=== PATIENT | male | born 1995 | race American Indian/Alaskan Native ===

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

== ENCOUNTER 2018-06-12 05:03 | Emergency (ER) | payer MEDICAID ==
[2018-06-12 05:12] VITALS: O2SAT 100
[2018-06-12] MEDS ORDERED: cefTRIAXone (Rocephin) 250 mg Inj IM STA (05:46)
--- NOTE | 2018-06-12 05:48 | C.PDOC ---
History Of Present Illness 22 y/o male c/o tingling in urethra and pain with urination 3 days after having sex with new female partner. pt sts condom broke. prior hx of chlamydia. no abdominal pain. denies penile and teste pain., Time Seen by Provider: 06/12/18 05:21 Chief Complaint (Nursing): Male Genitourinary History Per: Patient Onset/Duration Of Symptoms: Days (3) Current Symptoms Are (Timing): Still Present Quality Of Discomfort: "Pain" Associated Symptoms: Urinary Symptoms (dysuria). denies: Fever, Chills Past Medical History Reviewed: Historical Data, Nursing Documentation, Vital Signs Vital Signs: Last Vital Signs Temp 98.3 F 06/12/18 05:10 Pulse 68 06/12/18 05:10 Resp 20 06/12/18 05:10 BP 163/82 H 06/12/18 05:10 Pulse Ox 100 06/12/18 05:10 - Medical History PMH: No Chronic Diseases Surgical History: No Surg Hx Family History: States: Unknown Family Hx - Social History Hx Alcohol Use: Yes Hx Substance Use: Yes - Immunization History Hx Tetanus Toxoid Vaccination: Yes Hx Influenza Vaccination: Yes Hx Pneumococcal Vaccination: Yes Review Of Systems Constitutional: Negative for: Fever, Chills Genitourinary: Positive for: Dysuria, Penile Pain (tingling in urethra) Physical Exam - Physical Exam Appears: Non-toxic, No Acute Distress Skin: Normal Color, Warm, Dry Head: Atraumatic, Normacephalic Eye(s): bilateral: Normal Inspection, PERRL, EOMI Oral Mucosa: Moist Neck: Normal, Supple Chest: Symmetrical, No Tenderness Cardiovascular: Rhythm Regular Respiratory: Normal Breath Sounds, No Rales, No Rhonchi, No Wheezing Male Genital: Circumcised, Other (Applications Tester Nurse Samuel. Few ingorwn hairs to the mons pubis. No lesions. Swab dry with no discharge noted. ) Extremity: Normal ROM Neurological/Psych: Oriented x3, Normal Speech, Normal Cognition ED Course And Treatment O2 Sat by Pulse Oximetry: 100 (RA) Pulse Ox Interpretation: Normal Medical Decision Making Medical Decision Making: Plan: Chlamydia Rocephin 250mg PO Zithromax 1000mg Po Urinalysis 06/15 serology results reviewed, +gc and chlamydia. pt was treated for both during ED visit. Message left for pt to call ED to discuss results. Disposition Counseled Patient/Family Regarding: Studies Performed, Diagnosis, Need For Followup, Rx Given - Disposition Referrals: [facility] [Outside] [facility] [Outside] Disposition: HOME/ ROUTINE Disposition Time: 07:03 Condition: GOOD Additional Instructions: Safe sex only. Notify partner to be treated. Follow up in clinic; std clinic recommended. Take antibiotics as prescribed. Return for any worse symptoms, Prescriptions: Ciprofloxacin [Cipro] 500 mg PO BID #6 tab Instructions: Urinary Tract Infection, Adult (DC), Urethritis (DC) Forms: [employer] ([place]), STD Clinic, General Discharge Instructions - Clinical Impression Clinical Impression: UTI (urinary tract infection), STI (sexually transmitted infection) - PA / COMPUTER SYSTEM TECHNICIAN / Resident Statement MD/DO has reviewed & agrees with the documentation as recorded. - Scribe Statement The provider has reviewed the documentation as recorded by the Scribe All medical record entries made by the Scribe were at my direction and personally dictated by me. I have reviewed the chart and agree that the record accurately reflects my personal performance of the history, physical exam, medical decision making, and the department course for this patient. I have also personally directed, reviewed, and agree with the discharge instructions and disposition.
[2018-06-12 06:14] VITALS: BP 139/77; PULSE 85; RESP 18; TEMP 98.4
[2018-06-12 06:18] LABS: SQUAMOUS EPITHIAL < 1 /hpf (0-5); URINE BACTERIA RARE (<OCC); URINE URIC ACID CRYSTALS FEW /hpf (<OCC)
[2018-06-12 06:22] LABS: URINE BILIRUBIN NEGATIVE (NEGATIVE); URINE BLOOD MODERATE (NEGATIVE); URINE CLARITY Hazy (Clear); URINE COLOR YELLOW (YELLOW); URINE GLUCOSE (UA) NEGATIVE (Normal); URINE PROTEIN NEGATIVE (NEGATIVE)
[2018-06-12 06:23] LABS: URINE LEUKOCYTE ESTERASE NEGATIVE Leu/uL (Negative); URINE UROBILINOGEN 0.2 mg/dL (0.2-1.0)
== END 2018-06-12 07:16 | disposition home or self-care (01) ==
LOC: C.ER 05:03
DX: N39.0 Urinary tract infection, site not specified (principal); A64 Unspecified sexually transmitted disease
CPT/HCPCS: 81001; 87491; 87591; 96372; 99284; J0696